=== PATIENT | female | born 1970 | race Hispanic/Latino ===

== ENCOUNTER 2016-11-02 08:29 | Outpatient (CLI) | payer OTHER ==
[2016-11-02 09:18] LABS: BUN (Urea Nitrogen) 12 mg/dL (7.0-18.7); Calc. Creatinine Clearance 0 mL/min (70-130); Estimated GFR-MDRD Greater than 90
== END 2016-11-02 08:30 | disposition home or self-care (01) ==
LOC: MADLABBHPM 08:29
PROVIDERS: ATTEND Family Medicine
DX: M79.609 Pain in unspecified limb (principal)
CPT/HCPCS: 36415; 82565; 84520

== ENCOUNTER 2020-05-19 18:51 | Emergency (ER) | payer OTHER ==
[2020-05-19] MEDS ORDERED: Ketorolac Tromethamine 60 MG/2 ML VIAL ONE (19:27)
== END 2020-05-19 20:30 | disposition home or self-care (01) ==
LOC: MADERS 18:51
DX: I10 Essential (primary) hypertension (principal); G44.209 Tension-type headache, unspecified, not intractable; M54.2 Cervicalgia; Z79.899 Other long term (current) drug therapy
CPT/HCPCS: 96372; 99283; J1885